=== PATIENT | female | born 1975 | race Caucasian/White ===

== ENCOUNTER → 2017-05-14 | Outpatient (REF) | payer OTHER ==
[2017-05-24 12:16] LABS: SUMMARY SEE SEPARATE REPORT
== END ==
LOC: M LABDRAW1 16:50
PROVIDERS: ATTEND Physical Medicine & Rehabilitation
DX: M47.816 Spondylosis without myelopathy or radiculopathy, lumbar region (principal)

== ENCOUNTER 2018-07-18 07:02 | Day surgery (SDC) | payer OTHER ==
[~2018-07-18 07:02] MED LIST: LIDOCAINE 1% MDV 20ML VIAL SQ
[2018-07-18] MEDS ORDERED: dexameTHASONE 4 MG/ML 1ML VIAL (J1100) IV (07:15)
[2018-07-18 07:56] LABS: BEDSIDE GLUCOSE 145 MG/DL (70-105)
[2018-07-18] MEDS: LR 1,000 ML IV ×2 (08:00→10:49)
[2018-07-18] MEDS ORDERED: LIDOCAINE 2% W/ EPINEPHRINE 1.7 ML DENTAL INJ As Ordered (08:56)
[2018-07-18] MEDS ORDERED: MEPIVACAINE HCL 3 % 1.7 ML DENTAL CARTRIDGE (CARBOCAINE) (J0670) As Ordered (08:56)
[2018-07-18] MEDS: CLINDAMYCIN 900 MG in APPROPRIATE DILUENT 1 EA IV (09:20)
[2018-07-18] MEDS: CHLORHEXIDINE ORAL RINSE 0.12%/15ML 120ML BOTTLE As Ordered (09:43)
[2018-07-18] MEDS ORDERED: GLYCOPYRROLATE INJ 0.2 MG/ML 2 ML VIAL As Ordered (09:46)
[2018-07-18] MEDS ORDERED: ROCURONIUM BROMIDE 50 MG/5 ML VIAL As Ordered (09:46)
[2018-07-18] MEDS ORDERED: ONDANSETRON 4MG/2ML VIAL (J2405) As Ordered (09:46)
[2018-07-18] MEDS ORDERED: LIDOCAINE 2% INJ 100 MG/5 ML SDV (FOR ANES.) As Ordered (09:46)
[2018-07-18] MEDS ORDERED: NEOSTIGMINE 10 MG/10 ML VIAL (J2710) As Ordered (09:46)
[2018-07-18] MEDS ORDERED: fentaNYL 250 MCG/5 ML INJECTION (J3010) As Ordered (09:46)
[2018-07-18] MEDS ORDERED: PROPOFOL 200 MG/20 ML VIAL As Ordered ×2 (09:46→10:06)
[2018-07-18] MEDS ORDERED: MIDAZOLAM INJ 2 MG/2 ML VIAL (J2250) As Ordered (09:46)
[2018-07-18] MEDS ORDERED: hydrALAZINE INJ 20 MG/ML VIAL As Ordered (09:54)
[2018-07-18] MEDS: LIDOCAINE 2% W/ EPINEPHRINE 1.7 ML DENTAL INJ As Ordered (10:29)
[2018-07-18 11:07] LABS: BEDSIDE GLUCOSE 160 MG/DL (70-105)
[2018-07-18] MEDS ORDERED: PERCOCET 5MG/325MG TAB As Ordered (11:15)
[2018-07-18] MEDS: PERCOCET 5MG/325MG TAB PO ×2 (11:15→11:45)
[2018-07-18] MEDS ORDERED: HYDROMORPHONE HCL 0.5 MG/ 0.5 ML SYRINGE (J1170 PER 1) IV (11:30)
[2018-07-18] MEDS ORDERED: fentaNYL 100 MCG/2 ML INJECTION (J3010) IV (11:30)
[2018-07-18] MEDS ORDERED: ONDANSETRON 4MG/2ML VIAL (J2405) IV (11:30)
== END 2018-07-18 12:46 | disposition home or self-care (01) ==
LOC: M SDC 07:02
DX: K02.9 Dental caries, unspecified (principal); E11.9 Type 2 diabetes mellitus without complications; I10 Essential (primary) hypertension; K76.0 Fatty (change of) liver, not elsewhere classified; G47.33 Obstructive sleep apnea (adult) (pediatric); E66.01 Morbid (severe) obesity due to excess calories; Z79.899 Other long term (current) drug therapy
CPT/HCPCS: D7210